=== PATIENT | female | born 1970 | race African-American/Black ===

== ENCOUNTER 2021-02-03 15:02 | Emergency (ER) | payer OTHER ==
[~2021-02-03] VITALS: Ht 152.4 cm; Wt 68.0 kg
[2021-02-03 15:10] VITALS: TEMP 98.1
[2021-02-03 17:29] VITALS: BP 148/78
== END 2021-02-03 17:33 | disposition home or self-care (01) ==
LOC: ED 15:02
DX: N13.2 Hydronephrosis with renal and ureteral calculous obstruction (principal); Z87.442 Personal history of urinary calculi
CPT/HCPCS: 81000; 96360; 96361; 96374; 96375; 99284; J1885; J2405